=== PATIENT | female | born 1960 | race Caucasian/White ===

== ENCOUNTER → 2017-04-11 | Outpatient (CLI) | payer OTHER ==
[~2017-04-11] MED LIST: ASPIR 8181 MG PO; CENTRUM SILVER1 EAC2 PO; CIPRO500 M1 PO; CRANBERRY200 MG PO; ESTRADIOL 1 MG T1 M1 TOP; FISH OIL 1,001000 M2 PO; GLUCOSAMIN-CHO1 EACH PO; LIPITOR 20 MG T20 M1 PO; LORATIDINE 10 M10 M1 PO; MAGOX 400400 MG PO; PRILOSEC 20 MG20 MG PO; PROBIOTIC1 EAC1 PO; REGLAN 5 MG TAB5 MG PO; TUMS PO; ULTRAM 50MG TAB50 MG PO; VITAMIN D32000 UNI1 PO
--- NOTE | ~2017-04-11 | CATHLAB ---
[facility] [address] [place] [address] INVASIVE PROCEDURE REPORT Name: EUGENE RODRIGUES Room #: REG ASHWIN Amaya#: [id number] Admission: 04/11/17 Attend Phys: Yuriy Bauer, Discharge: Date of : 64 Date of Service: 04/11/17 1307 Report #: [id number] THIS REPORT FOR: //name// APPROVED REPORT Patient Details Patient Status: Out-Patient Room #: The patient is a 56 year-old female Event Personnel Yuriy Bauer Display Carver, Юлия BanerejeR, Juliana Quezada Wes RN, Jessica Petit RN RN, Teresa Bonilla RTR Monitor, Madhuri Sahu Monitor Procedures Performed Art Access - R femoral artery* 08425 Initial Mod Sed Same Phys/QHP Gr5y 624517 Left Heart Cath w/or w/o Coronaries [id number] [facility] Hemostasis w/ Mynx Indication Chest pain Procedure Narrative The patient was brought electively to the Cardiac Catheterization Laboratory and was prepped and draped in a sterile manner. The Right Groin^ was infiltrated with 1% Lidocaine subcutaneous anesthesia. A PINNACLE 6FR Sheath #[id number] sheath was inserted into the RFA^. Coronary angiography was performed using coronary diagnostic catheters. The right coronary system was accessed and visualized with a JR 4 catheter. The left coronary system was accessed and visualized with a JL 4 catheter. The left ventricle was accessed and visualized with a Pigtail catheter. Left ventricular/Aortic Valve gradient assessed via catheter pullback. Left ventriculogram was performed in KOHLI projection. Closure device was deployed with a 6 Fr . The patient tolerated the procedure well and there were no complications associated with the procedure. There was no hematoma. Intraoperative Conscious Sedation Sedation start time: 10:12 Case end Time: 10:32 Fentanyl 75 mcg Versed 1 mg Fluoro Time: 2.39 minutes Dose: DAP 2253.60 cGycm2 261 mGy Contrast Type and Amount: Omnipaque 105 ml [facility] [address] [place] [address] INVASIVE PROCEDURE REPORT Name: EUGENE RODRIGUES Room #: REG Monique#: [id number] Admission: 04/11/17 Attend Phys: Yuriy Bauer, Discharge: Date of : 64 Date of Service: 04/11/17 1307 Report #: [id number] Diagnostic Cath Left Main Normal LAD Angiographically normal extending to the inferoapex Diagonal 1 Normal Circumflex Large but nondominant and comprised of 2 marginal branches OM1 Angiographically normal OM2 Angiographically normal Right Coronary Dominant right coronary, angiographically normal R PDA Relatively small, normal RPLV moderate in size, normal Left Ventriculography The left ventricle is normal in size with normal contractility. The left ventricular ejection fraction is estimated to be 60-65%. Left ventricular wall motion abnormalities are not present. There is no mitral insufficiency. Hemodynamics The aortic pressure is 174/60 mmHg with a mean of 114 mmHg. The left ventricular pressure is 141/11 mmHg with a mean of mmHg. The left ventricular end diastolic pressure is 19 mmHg. Conclusion 1. Normal global and regional systolic function 2. Normal coronary vasculature. Right coronary dominant circulation <ELECTRONICALLY SIGNED> By: Yuriy Bauer MD, FACC 04/11/17 1307 06 130 Yuriy Bauer MD, FACC /INF
--- NOTE | ~2017-04-11 | EKG ---
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 Ubaldo : 1960 Requested By: Yuriy Bauer Order Number: [id number] MD: Yuriy Bauer Measurements Intervals [place] Rate: 71 P: 43 AL: 133 QRS: 66 QRSD: 77 T: 47 QT: 374 QTc: 407 Interpretive Statements Sinus rhythm Normal tracing No previous ECG available for comparison Electronically Signed On 04-11-2017 8:00:17 [employer] by Yuriy Bauer [email or web address] <ELECTRONICALLY SIGNED> By: Yuriy Bauer MD, [facility] 04/11/17 [id number] [id number] Yuriy Bauer MD, FACC /EPI
[2017-04-11 07:34] LABS: HEMATOCRIT 41.9 % (37.0-47.0); HEMOGLOBIN 14.3 gm/dL (12.0-15.0); MCH 30.4 pg (26.0-34.0); MCHC 34.1 g/dL (28.0-37.0); MCV 89.2 fL (80.0-100.0); RBC 4.7 mil/uL (4.20-5.00); RDW 13.4 % (10.5-14.5); WBC 6.5 thou/uL (4.0-11.0)
[2017-04-11 07:44] LABS: CALCIUM 9.7 mg/dL (8.5-10.1); POTASSIUM 3.5 mmol/L (3.5-5.1)
== END | disposition home or self-care (01) ==
LOC: CATH 06:25
PROVIDERS: Internal Medicine
DX: R07.9 Chest pain, unspecified (principal); Z98.890 Other specified postprocedural states; Z90.710 Acquired absence of both cervix and uterus; Z90.49 Acquired absence of other specified parts of digestive tract; Z82.49 Family history of ischemic heart disease and other diseases of the circulatory system

== ENCOUNTER 2017-04-15 09:33 | Emergency (ER) | payer OTHER ==
[~2017-04-15] VITALS: Ht 157.5 cm; Wt 63.5 kg
--- NOTE | ~2017-04-15 | EKG ---
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
[~2017-04-15 09:33] MED LIST changes: -REGLAN 5 MG TAB5 MG PO; -ULTRAM 50MG TAB50 MG PO
[2017-04-15 10:15] LABS: ABSOLUTE NEUTROPHILS 6.3 thou/uL (1.4-8.2); BASOPHILS 0.4 % (0.0-2.0); EOSINOPHILS 0.3 % (0.0-3.0); HEMATOCRIT 37.5 % (37.0-47.0); HEMOGLOBIN 13.2 gm/dL (12.0-15.0); LYMPHOCYTES 20.4 % (24.0-44.0); MCH 31.1 pg (26.0-34.0); MCHC 35.3 g/dL (28.0-37.0); MCV 88.1 fL (80.0-100.0); MONOCYTES 5.3 % (1.0-8.0); PLATELET COUNT 316 thou/uL (150-400); POLYS 73.6 % (36.0-66.0); RBC 4.26 mil/uL (4.20-5.00); RDW 12.8 % (10.5-14.5); WBC 8.6 thou/uL (4.0-11.0)
[2017-04-15 10:26] LABS: CALCIUM 9.4 mg/dL (8.5-10.1); CREATININE 1.1 mg/dL (0.6-1.0); POTASSIUM 3.8 mmol/L (3.5-5.1)
[2017-04-15 10:28] LABS: APTT 25.9 Seconds (24.5-32.8); PROTIME 9.9 Seconds (9.3-11.4)
[2017-04-15 10:44] LABS: ALBUMIN 3.6 g/dL (3.4-5.0); DIRECT BILIRUBIN 0.1 mg/dL (<0.1-0.3); TOTAL BILIRUBIN 0.7 mg/dL (<0.1-1.0)
[2017-04-15] MEDS ORDERED: ULTRAM 50MG TAB50 MG PO (12:23)
[2017-04-15] MEDS ORDERED: REGLAN 5 MG TAB5 MG PO (12:36)
[2017-04-15 12:39] VITALS: BP 124/77
== END 2017-04-15 12:43 | disposition home or self-care (01) ==
LOC: ER 09:33
PROVIDERS: Emergency Medicine
DX: I97.638 Postprocedural hematoma of a circulatory system organ or structure following other circulatory system procedure (principal); Z90.49 Acquired absence of other specified parts of digestive tract; Z90.710 Acquired absence of both cervix and uterus; Z88.0 Allergy status to penicillin; Z88.1 Allergy status to other antibiotic agents; Z88.2 Allergy status to sulfonamides

== ENCOUNTER → 2018-01-01 | Outpatient (CLI) | payer OTHER ==
[~2018-01-01] MED LIST changes: +REGLAN 5 MG TAB5 MG PO; +ULTRAM 50MG TAB50 MG PO
== END ==
LOC: NUC 10:56
DX: M81.0 Age-related osteoporosis without current pathological fracture (principal); M85.89 Other specified disorders of bone density and structure, multiple sites

== ENCOUNTER → 2019-02-18 | Outpatient (CLI) | payer OTHER | LOC: NUC 01-07 08:51 | DX: M81.0 Age-related osteoporosis without current pathological fracture (principal); M85.80 Other specified disorders of bone density and structure, unspecified site ==

== ENCOUNTER → 2021-02-01 | Outpatient (CLI) | payer OTHER | LOC: NUC 01-29 08:45 | PROVIDERS: ATTEND Family Medicine | DX: M85.88 Other specified disorders of bone density and structure, other site (principal) ==